=== PATIENT | male | born 1975 | race Caucasian/White ===

== ENCOUNTER 2016-07-28 11:03 | Observation (INO) | payer BC, OTHER ==
[2016-07-28] MEDS ORDERED: HYDROmorphone 1 MG/ML 1 ML SYRINGE IVP PRN ×2 (11:45→17:33)
[2016-07-28] MEDS ORDERED: HYDROmorphone 1 MG/ML 1 ML SYRINGE IVP STA (11:45)
[2016-07-28] MEDS ORDERED: ONDANSETRON 4 MG/2 ML VIAL IVP STA (11:47)
--- NOTE | 2016-07-28 13:06 | US ---
EXAMINATION TYPE: US abdomen limited DATE OF EXAM: 07/28/2016 12:53 PM COMPARISON: No previous CLINICAL HISTORY: Pain. Chest pain and nausea x 1 day EXAM MEASUREMENTS: Liver Length: 19.1 cm Gallbladder Wall: 0.2 cm CBD: 0.4 cm Right Kidney: 10.9 x 5.3 x 6.2 cm Technically difficult and limited study due to patient's body habitus Pancreas: obscured by overlying midline bowel gas Liver: enlarged at 19.1cm, heterogeneous, increased echogenicity, increased attenuation, scanned int ercostally, limited by rib shadowing Gallbladder: multiple echogenic shadowing mobile foci Evidence for sonographic Shultz's sign: no CBD: visualized portions wnl, limited by overlying bowel gas Right Kidney: visualized portions wnl, limited rib shadowing and overlying bowel gas IMPRESSION: There are a few gallstones near the gallbladder neck. Hepatomegaly and probable fatty infiltration of the liver.
[2016-07-28] MEDS ORDERED: RX INFO: IV CONTRAST WAS GIVEN 1 EACH MISC MISCELLANE PRN (15:41)
--- NOTE | 2016-07-28 17:03 | CT ---
EXAMINATION TYPE: CT angio chest DATE OF EXAM: 07/28/2016 4:55 PM COMPARISON: 04/30/2010 HISTORY: Patient complains of epigastric pain. CT DLP: 652 mGycm Automated exposure control for dose reduction was used. CONTRAST: CTA scan of the thorax is performed with IV Contrast, patient injected with 100 mL of Omnipaque 350, pulmonary embolism protocol. . FINDINGS: There are 3-D post processed images. There is mild subsegmental atelectasis at the lung bases. There is no pleural effusion. There is no e vidence of a pulmonary mass. There is no mediastinal adenopathy. There is no evidence of aortic aneurysm or dissection. I see no f illing defects in the pulmonary arteries. There are no hilar masses. There is no pericardial effusion . There is fatty infiltration of the liver.. IMPRESSION: NO EVIDENCE OF PULMONARY EMBOLISM. MILD SUBSEGMENTAL ATELECTASIS AT THE LUNG BASES. NO ADVERSE CHANGE COMPARED TO OLD EXAM.
--- NOTE | 2016-07-28 17:06 | CT ---
EXAMINATION TYPE: CT abdomen pelvis w con DATE OF EXAM: 07/28/2016 4:57 PM COMPARISON: NONE HISTORY: Patient complains of epigastric pain. CT DLP: 1803 mGycm Automated exposure control for dose reduction was used. TECHNIQUE: Helical acquisition of images was performed from the lung bases through the pelvis. CONTRAST: Performed without Oral Contrast and with IV Contrast, patient injected with 100 mL of Omnipaque 350. FINDINGS: There is mild subsegmental atelectasis at the lung bases. There is decreased density throughout the l iver related to fatty infiltration. Spleen appears normal. There is no pancreatic mass. Gallbladder a ppears normal. Bile ducts are not dilated. There is no adrenal mass. Kidneys show satisfactory contrast opacification. There is no hydronephrosi s. There is no retroperitoneal adenopathy. There is no ascites. There is a small umbilical hernia jean claude t contains omental fat. Bladder distends smoothly. There is no sign of a pelvic mass. There are clips apparently from appendectomy. I see no intestinal wall thickening. There are no dilated loops. I see no bony destructive process. There is 10% anterior wedging of T12 vertebra. IMPRESSION: OLD MILD COMPRESSION FRACTURE OF T12. FATTY INFILTRATION OF THE LIVER. UMBILICAL HERNIA. NO SIGN OF A CUTE ABDOMEN AND PELVIS.
[2016-07-28] MEDS ORDERED: NITROGLYCERIN SL TABS 0.4 MG TAB SUBLINGUAL PRN (17:33)
[2016-07-28] MEDS ORDERED: ACETAMINOPHEN TAB 325 MG TAB PO PRN (17:33)
--- NOTE | 2016-07-28 17:33 | ED ---
Chest Pain HPI - General Chief Complaint: Chest Pain Stated Complaint: Chest Pain Time Seen by Provider: 07/28/16 11:12 Source: patient, EMS Mode of arrival: EMS Limitations: no limitations - History of Present Illness Initial Comments: Says transferred from another hospital is a 40 years old had a chest pain for about a day now also complaining about the shortness of breath and chest pain gets worse with deep breaths E he does radiate to his neck complaining about epigastric area pain as well as right upper quadrant area pain he status post appendectomy sometime ago and the chest pain arrival is a 6. He had quite a bit of extensive workup done in his primary hospital that includes EKG troponin and CBC liver functions and C-reactive protein of those studies were normal V of system is otherwise unremarkable - Related Data Home Medications Medication Instructions Recorded Confirmed Ibuprofen [Motrin] 400 mg PO Q6HR PRN 03/30/16 07/28/16 Levothyroxine Sodium [Synthroid] 100 mcg PO HS 03/30/16 07/28/16 Lisinopril [Prinivil] 10 mg PO HS 03/30/16 07/28/16 Allergies Allergy/AdvReac Type Severity Reaction Status Date / Time morphine Allergy Itching Verified 07/28/16 12:19 Review of Systems ROS Statement: Those systems with pertinent positive or pertinent negative responses have been documented in the HPI. ROS Other: All systems not noted in ROS Statement are negative. EKG Findings - EKG Comments: EKG Findings:: EKG shows normal sinus bradycardia ventricular rate is 59 NM interval is 146 QRS duration is 90 QT/QTC 390/386 review of this EKG does not reveal any ST elevation or ST depression Past Medical History Past Medical History: Hypertension, Thyroid Disorder History of Any Multi-Drug Resistant Organisms: None Reported Past Surgical History: Appendectomy Additional Past Surgical History / Comment(s): Eye surgery when 5 y/o Past Anesthesia/Blood Transfusion Reactions: No Reported Reaction Past Psychological History: No Psychological Hx Reported Smoking Status: Current every day smoker Past Alcohol Use History: Occasional Past Drug Use History: None Reported - Past Family History Mother Family Medical History: Hypertension, Pulmonary Embolus Additional Family Medical History / Comment(s): Smoked for 48 years Father History Unknown: Yes Sister(s) Family Medical History: Hypertension General Exam - General Exam Comments Initial Comments: General: The patient is awake and alert, He is in a qzuq-ky-[id number] distress him a his chest pain is 7/10 Skin: Skin is warm and dry and no rashes or lesions are noted. Eye: Pupils are equal, round and reactive to light, extra-ocular movements are intact; there is normal conjunctiva bilaterally. Ears, nose, mouth and throat: There are moist mucous membranes and no oral lesions. Neck: The neck is supple, there is no tenderness or JVD. Cardiovascular: There is a regular rate and rhythm. No murmur, rub or gallop is appreciated Respiratory: To auscultation bilateral, no wheezing no rhonchi no distress respiratory delaroas noticed Gastrointestinal: Tender in epigastric area and tender over the right upper quadrant area, positive bowel sounds no guarding no rebounds. Back: There is no tenderness to palpation in the midline. There is no obvious deformity. Musculoskeletal: Normal ROM, no tenderness, There is no pedal edema. There is no calf tenderness or swelling. No cords were appreciated. Neurological: CN II-XII intact, Cranial nerves III through XII are intact. There are no obvious motor or sensory deficits. Coordination appears grossly intact. Speech is normal. Psychiatric: Cooperative, appropriate mood & affect, normal judgment. Limitations: no limitations Course Vital Signs 07/28/16 07/28/16 07/28/16 11:08 11:33 12:03 Temperature 97.7 F Pulse Rate 67 74 78 Respiratory 16 15 20 Rate Blood Pressure 161/103 154/98 159/92 O2 Sat by Pulse 98 98 98 Oximetry 07/28/16 07/28/16 15:59 16:14 Temperature 97.3 F L Pulse Rate 89 119 H Respiratory 16 24 Rate Blood Pressure 138/95 141/80 O2 Sat by Pulse 96 95 Oximetry Critical Care Time Total Critical Care Time: 50 Critical Care Time: General presentation was quite dramatic on and he had a quite a bit of extensive workup done as CT angina and now are hospital is negative CT abdomen is unremarkable but he still has chest pain considering that I would admit him under Dr. Parks service can heparinize him he would have adequate pain management and will consult cardiology Disposition Clinical Impression: Chest pain, Right upper quadrant pain Disposition: ADMITTED IP TO THIS HOSP Condition: Good
[2016-07-28] MEDS ORDERED: HEPARIN SODIUM,PORCINE/D5W PMX 25,000 UNIT in DEXTROSE/WATER 1 500ML.BAG IV SCH (17:45)
[2016-07-28] MEDS: HEPARIN SODIUM,PORCINE 5,000 UNIT/ML 1 ML VIAL IV ONE (18:15)
[2016-07-28 19:14] VITALS: RESP 16
[2016-07-28] MEDS ORDERED: LEVOTHYROXINE 100 MCG TAB PO SCH (21:00)
[2016-07-28] MEDS ORDERED: LISINOPRIL 10 MG TAB PO SCH (21:00)
[2016-07-28 21:13] VITALS: BMI 39.9
[2016-07-29 00:40] LABS: Creatine Kinase 171 U/L (55-170)
[2016-07-29 00:50] LABS: Creatine Kinase MB 1.6 ng/mL (0.0-2.4); Troponin I <0.012 ng/mL (0.000-0.034)
[2016-07-29] MEDS: HEPARIN SODIUM,PORCINE 5,000 UNIT/ML 1 ML VIAL IV ONE (02:26)
[2016-07-29] MEDS ORDERED: HEPARIN SODIUM,PORCINE 5,000 UNIT/ML 1 ML VIAL IV PRN (02:39)
[2016-07-29 06:25] LABS: Creatine Kinase 172 U/L (55-170)
[2016-07-29 06:26] LABS: Cholesterol 192 mg/dL (<200); HDL Cholesterol 54 mg/dL (40-60); Triglycerides 119 mg/dL (<150)
[2016-07-29 06:37] LABS: Creatine Kinase MB 1.5 ng/mL (0.0-2.4); Troponin I <0.012 ng/mL (0.000-0.034)
[2016-07-29 11:26] VITALS: BP 110/67; PULSE 90; TEMP 98.5
--- NOTE | 2016-07-29 15:18 | ECHOS ---
DATE OF SERVICE: 07/29/2016 AGE: 40Y SEX: M HT: 69" WT: 270 lbs. Protocol Alex: X Others: Stress Echo Stage: 3 Dur. of Exercise: 7:00 *Heart Rate Blood Pressure *Rest: 101 Rest: 118/77 * *Max. Achieved: 163 Maximum BP: 183/60 85% PMHR: 154 100% PMHR: 181 *METS: 8.1 INDICATIONS: Chest pain. MEDICATIONS: Lisinopril, Synthroid, Motrin. Baseline rhythm is sinus mechanism, rate of 101, normal axis and intervals, normal electrocardiogram. Baseline blood pressure 118/77 mmHg. Patient exercised on Alex protocol for 7 minutes reaching peak rate of 163 beats per minute, which is equal to 90% maximum predicted heart rate; peak blood pressure 183/60 mmHg. Test was terminated due to fatigue. There was no chest pain. Electrocardiograph monitoring revealed no evidence of diagnostic ischemic ST deviation. FINDINGS: Baseline echocardiogram revealed normal wall motion. At peak exercise there was normal wall motion augmentation with no hypokinesis or dyskinesis. CONCLUSION: 1. Average exercise tolerance with normal electrocardiograph response to exercise. 2. Normal stress echocardiogram with no evidence of stress-induced ischemia.
--- NOTE | 2016-07-29 15:51 | CONS ---
DATE OF CONSULTATION: Mr. Rodriguez is a 40-year-old gentleman with multiple admissions in the past with history of ( ) history of smoking. He came in with pain that started in the interscapular area radiating to the front, on a scale of 1 to 10, 4 to 5 over 10. Patient's chest pain gets worse with deep inspiration. Patient does not have symptoms suggestive of pericarditis but pleuritic type of pain. Patient had a CT of the chest that was done to rule out, ruled out pulmonary embolism. Patient's EKGs do not show any acute ischemic changes. Patient appears to have atypical symptoms. Patient also is known to have hyperlipidemia with LDL cholesterol of 114. Probably patient would benefit from complete cessation of smoking and starting on the lipid-lowering agents. Patient is known hypertensive and past history of pericarditis 3 years ago. Current medications prior to admission include: 1. Motrin 400 mg. 2. Levothyroxine 100 mcg p.o. daily. 3. Lisinopril 10 mg p.o. daily. ALLERGIES: MORPHINE. REVIEW OF SYSTEMS: Essentially unremarkable other than what is stated in the presenting illness. Patient is a smoker; smokes about 1 pack of cigarettes per day. Patient is known to have hypertension. Patient's physical examination revealed a moderately obese gentleman, not in any acute distress, oriented x3 with a pulse rate of 82 beats per minute and regular, blood pressure of 119/77, respirations of 20. Head normocephalic. HEENT unremarkable. Neck is supple. No thyroid enlargement. No bruit noted. Good carotid upstroke bilaterally. Chest is symmetrical. CARDIAC EXAMINATION: S1 and S2. Lungs are clinically clear. No pleural rubs are noted. Lungs are clinically clear other than scattered rhonchi. ABDOMEN: Soft. No organomegaly. Active bowel sounds. EXTREMITIES: Peripheral pulses. No pedal edema. PLASTIC SEWER examination is grossly within normal limits. Patient also noted to have gallstones on the CT. CT of the chest was negative for pulmonary embolism. ASSESSMENT: 1. Atypical chest pains. 2. Long-standing history of smoking. 3. Hypertension. 4. Hyperlipidemia. 5. Moderate exogenous obesity. RECOMMENDATIONS: Patient advised complete cessation of smoking. Will proceed with a stress echocardiogram. If this study is normal, patient should be able to go home. If the study is abnormal, patient will have a cardiac catheterization. Patient will follow with his primary care physician.
--- NOTE | 2016-07-29 20:35 | HP ---
DATE OF ADMISSION: CHIEF COMPLAINT: Chest pain. HISTORY OF PRESENT ILLNESS: Mr. Rodriguez is 40-year-old male with a known history of hypertension, hypothyroidism, and a history of pericarditis in 2009. He came to the hospital with complaints of chest pain, mainly mid sternal, that started yesterday morning. Denied any radiation. Chest pain was associated with dry heaves and minimal sweating. Patient also felt short of breath along with the chest pain. Otherwise, patient says that the chest pain worsens with deep breathing on admission. Chest pain is mainly in the midsternal and epigastric region. Patient initially presented to [facility]. From there patient was transferred to [facility] for cardiac evaluation. Otherwise, patient had a normal workup done. EKG, troponin x3 as well as liver function tests and C-reactive protein studies were all within normal limits at [facility]. Patient had a CT angiogram of the chest which showed no pulmonary embolism. CT abdomen and pelvis showed old compression fracture at T12 and fatty infiltration of the liver; no signs of acute abdomen or pelvis. REVIEW OF SYSTEMS: CONSTITUTIONAL: No fever. No chills. No weakness. RESPIRATORY: No cough or sputum production. CARDIOVASCULAR: No chest pain. Short of breath. No leg swelling. ABDOMEN: No nausea, vomiting, abdominal pain. GENITOURINARY: Negative. ENDOCRINE: Negative. PSYCHIATRIC: Negative. SKIN: Negative. MUSCULOSKELETAL: Negative. All other fourteen-point review of systems negative except as above. Past medical history includes: 1. Hypertension. 2. Hypothyroidism. PAST SURGICAL HISTORY: 1. Appendectomy. 2. Eye surgery as a 5-year-old. No psychosocial history. SOCIAL HISTORY: Currently an everyday smoker. Smokes about half a pack per day. Occasional alcohol use. Denied any drugs or IVDU. FAMILY HISTORY: Mother has hypertension, pulmonary embolism; smoker for 48 years. Sister has hypertension. ALLERGIES: MORPHINE. Home medications include: 1. Motrin. 2. Synthroid. 3. Lisinopril. PHYSICAL EXAMINATION: Tjowkq-eltu-tuqo-old male lying in the bed comfortably. Alert, awake, oriented x3. No apparent distress. VITALS: Blood pressure is 138/95. Pulse is 89, respiration 16, temperature afebrile, pulse ox 96% on 2 L nasal cannula. HEENT: Atraumatic, normocephalic. NECK: Supple. No JVD. CVS EXAM: S1, S2 heard. No murmurs. No gallop. No rub. LUNGS: Bilateral air entry is present. No wheezing. No crackles. Non-labored breathing. ABDOMEN: Soft, nontender. Bowel sounds present. PLANNER SCHEDULER: Awake, alert, oriented x3. No focal deficit. EXTREMITIES: No edema. Pulses palpable bilaterally. No clubbing or cyanosis. PSYCHIATRIC: Cooperative. LABORATORY DATA: CBC, BMP within normal limits at [facility]. Troponin x3 negative. LDL is 114. CT abdomen and pelvis showed fatty infiltration of the liver and T12 compression fracture. CT angiogram showed no evidence of pulmonary embolism. IMPRESSION: 1. Chest pain, atypical. Rule out acute coronary syndrome. Continue with telemetry monitoring and serial EKGs and troponins. Cardiology recommended stress echo. I will continue the telemetry monitoring for now. 2. CT angiogram is negative for any pulmonary embolism. 3. Fatty infiltration of the liver. 4. Old compression fracture of T12. 5. Hypertension. 6. Hyperlipidemia with LDL of 114. 7. History of pericarditis in 2009. 8. Gallstones. EKG shows sinus bradycardia. Ultrasound of abdomen shows a few gallstones near the gallbladder neck. DISCUSSION AND PLAN: Patient will be continued on telemetry monitoring. Await stress echocardiogram and CT abdomen and pelvis. CT angiogram of the chest showed no acute abnormality. Will continue the current management. Further recommendations based on the clinical course.
[2016-07-30] MEDS ORDERED: ATORVASTATIN 20 MG TAB PO SCH (09:00)
--- NOTE | 2016-07-30 12:09 | DS ---
DATE OF ADMISSION: 07/28/2016 DATE OF DISCHARGE: 07/29/2016 DISCHARGE DIAGNOSES: 1. Atypical chest pain, rule out acute coronary artery syndrome, most likely gastroesophageal reflux disease related. 2. History of pericarditis in 2009. 3. Hypertension. 4. Hyperlipidemia with LDL level of 114. 5. Hypothyroidism. 6. Gallstones, a few. HOSPITAL COURSE: Mr. Rodriguez is a 40-year-old with a known history of hypertension, came to the hospital with complaints of chest pain. He has dry heaves and short of breath which is midsternal and patient was telemonitored and serial EKGs and troponins were done, which are negative. Patient was initially seen at [facility] and transferred to [facility] for cardiac evaluation; otherwise, patient is clinically much improved now. No clubbing or chest pain today. Patient seen by Cardiology and recommend a stress echocardiogram which showed no inducible ischemia with exercise and patient is currently chest-pain free. Patient will be discharged home in stable condition to follow with the primary care physician in 1 to 3 days. Patient had a work-up, including a CT abdomen that showed a fatty infiltration of the liver as well as gallstones. The patient otherwise advised to follow with the primary care physician for further management. DISCHARGE PHYSICAL EXAMINATION: A 40-year-old male lying in bed comfortably, alert and oriented x3, appears to be in no apparent distress. VITALS: Blood pressure is 114/89, pulse is 100, respirations 16, temperature afebrile, pulse ox 93% on room air. Laboratory data reviewed. Discharge physical examination done. Discharge medications include: 1. Levothyroxine 100 mcg p.o. at bedtime. 2. Lisinopril 10 mg p.o. at bedtime. 3. Atorvastatin 20 mg p.o. daily. Patient will be discharged home in stable condition. Activity as tolerated. Heart-healthy diet and follow with Cardiology in 1 week.
== END 2016-07-29 18:26 | disposition home or self-care (01) ==
LOC: EC 11:03 → 3OBS 17:33
PROVIDERS: ADMIT Hospitalist; ATTEND Hospitalist
DX: R07.89 Other chest pain (principal); I10 Essential (primary) hypertension; E78.5 Hyperlipidemia, unspecified; E03.9 Hypothyroidism, unspecified; K80.20 Calculus of gallbladder without cholecystitis without obstruction; R06.02 Shortness of breath; R10.13 Epigastric pain; R07.1 Chest pain on breathing; R10.11 Right upper quadrant pain; Z79.899 Other long term (current) drug therapy; Z88.5 Allergy status to narcotic agent; F17.200 Nicotine dependence, unspecified, uncomplicated; E66.09 Other obesity due to excess calories; K76.0 Fatty (change of) liver, not elsewhere classified; R00.1 Bradycardia, unspecified; Z90.49 Acquired absence of other specified parts of digestive tract; Z82.49 Family history of ischemic heart disease and other diseases of the circulatory system
CPT/HCPCS: 96376 ×3; 96374 ×2; 96375 ×3; 99285 ×2; 93005; 93350; 93017; 80061; 82550 ×2; 82553 ×2; 84484 ×2; 85730 ×2; 76705; 71275; 74177; G0378 ×2; J1644 ×3; Q9967; J2405; Q9957; J1170; 96366

== ENCOUNTER 2017-10-11 20:18 | Observation (INO) | payer BC, OTHER ==
[2017-10-11 22:33] VITALS: BMI 38.9
[2017-10-11] MEDS ORDERED: LEVOTHYROXINE 100 MCG TAB PO SCH (23:00)
[2017-10-11] MEDS ORDERED: ACETAMINOPHEN TAB 325 MG TAB PO PRN (23:00)
[2017-10-11] MEDS ORDERED: HEPARIN SODIUM,PORCINE 5,000 UNIT/ML 1 ML VIAL IV PRN (23:00)
[2017-10-11] MEDS ORDERED: LISINOPRIL 10 MG TAB PO SCH (23:00)
[2017-10-11] MEDS ORDERED: NITROGLYCERIN SL TABS 0.4 MG TAB SUBLINGUAL PRN (23:00)
[2017-10-11] MEDS ORDERED: HEPARIN SODIUM,PORCINE 5,000 UNIT/ML 1 ML VIAL IV ONE (23:00)
[2017-10-11] MEDS ORDERED: FAMOTIDINE 20 MG TAB PO SCH ×2 (23:00→23:02)
[2017-10-11] MEDS ORDERED: HEPARIN SODIUM,PORCINE/D5W PMX 25,000 UNIT in DEXTROSE/WATER 1 500ML.BAG IV SCH (23:30)
[2017-10-11] MEDS: SODIUM CHLORIDE 0.9% 1,000 ML IV SCH (23:34)
[2017-10-11 23:53] LABS: Creatine Kinase 387 U/L (55-170)
[2017-10-12 00:06] LABS: Troponin I <0.012 ng/mL (0.000-0.034)
[2017-10-12 00:20] LABS: Creatine Kinase MB 2.9 ng/mL (0.0-2.4)
[2017-10-12 06:50] LABS: Basophils # (A) 0.1 k/uL (0-0.2); Basophils % (A) 1 %; Eosinophils # (A) 0.4 k/uL (0-0.7); Eosinophils % (A) 5 %; HCT 40.8 % (39.0-53.0); HGB 13.4 gm/dL (13.0-17.5); Lymphocytes # (A) 2.9 k/uL (1.0-4.8); Lymphocytes % (A) 35 %; MCH 29.6 pg (25.0-35.0); MCHC 32.8 g/dL (31.0-37.0); MCV 90.1 fL (80.0-100.0); Mean Platelet Volume 7.7; Monocytes # (A) 0.5 k/uL (0-1.0); Monocytes % (A) 6 %; Neutrophils # (A) 4.3 k/uL (1.3-7.7); Neutrophils % (A) 51 %; Platelet Count 200 k/uL (150-450); RBC 4.53 m/uL (4.30-5.90); RDW 13.3 % (11.5-15.5); WBC 8.4 k/uL (3.8-10.6)
[2017-10-12 07:03] LABS: Anion Gap 11 mmol/L; Blood Urea Nitrogen 13 mg/dL (9-20); Carbon Dioxide 23 mmol/L (22-30); Chloride 108 mmol/L (98-107); Cholesterol 185 mg/dL (<200); Glucose 91 mg/dL (74-99); HDL Cholesterol 41 mg/dL (40-60); LDL Cholesterol,Calculated 108 mg/dL (0-99); Magnesium 1.9 mg/dL (1.6-2.3); Potassium 4.3 mmol/L (3.5-5.1); Sodium 142 mmol/L (137-145); Triglycerides 182 mg/dL (<150)
[2017-10-12 07:11] LABS: Creatine Kinase 316 U/L (55-170)
[2017-10-12 07:25] LABS: Creatine Kinase MB 2.2 ng/mL (0.0-2.4); Troponin I <0.012 ng/mL (0.000-0.034)
--- NOTE | 2017-10-12 09:50 | CONS ---
CONSULTATION CHIEF COMPLAINT: Chest pain. HISTORY OF PRESENT ILLNESS: Cole is a 42-year-old gentleman with history of hypertension who presents to the hospital complaining of chest pain. He states that this started while he was sitting on his porch. It felt like a pressure. There was no radiation to neck, arm or back. Was moderate intensity. There was no diaphoresis, but he had mild shortness of breath. This resolved spontaneously and went to the emergency room at [facility] and from there he had been transferred to [facility]. He received a sublingual nitroglycerin from the EMS and is not quite sure if it made a difference to his symptoms. He has had 2 sets of troponins that are both within normal limits. EKG shows normal sinus rhythm without significant ST-T wave changes. The patient had similar symptoms a little over a year ago and at that time had a stress echo that was negative. The patient's coronary risk factors are in the form of smoking and hypertension. There is no history of diabetes, a strong family history of premature coronary artery disease. ALLERGIES: Allergic to MORPHINE. MEDICATIONS: At home included Zantac, Prinivil 10 daily and Synthroid. FAMILY HISTORY: Negative for premature coronary artery disease. SOCIAL HISTORY: Significant for smoking. There is no history of EtOH abuse or drug abuse. REVIEW OF SYSTEMS: HEENT is unremarkable. Cardiac as described above. Respiratory negative. GI negative. negative. Allergy/Immunology: Negative. Musculoskeletal: Negative. Endocrine: Negative. DERM: Negative. CONSTITUTIONAL: Negative. ONCOLOGICAL: Negative. HEMATOLOGICAL: Negative. Rest of the system review is not relevant. EXAM: Comfortable at rest. Vital signs are stable. There is no jugular venous distention. Carotid upstroke is normal. There is no bruit. Chest exam reveals good air entry bilaterally. Heart exam reveals first and second heart sounds. No gallop. No murmur. No rub. Abdomen is soft, nontender. Exam of extremities did not reveal any edema. Peripheral pulses are felt. EKGs shows normal sinus rhythm and is within normal limits. Cardiac enzymes have been negative. ASSESSMENT: 1. Precordial chest pain. 2. Hypertension. 3. Smoking. PLAN: I am going to stop the IV heparin and ambulate him. I gave patient 1 of 2 options, either stay here and get a stress test done in the morning or go home and schedule an outpatient stress test. The patient wishes to go home and will schedule an outpatient stress test on him. MMODL / IJN: [id number] /
[2017-10-12 11:08] VITALS: BP 112/69; PULSE 70; RESP 16; TEMP 97.1
[2017-10-12] MEDS: SODIUM CHLORIDE 0.9% 1,000 ML IV SCH (11:09)
[2017-10-12 12:18] LABS: Creatine Kinase 302 U/L (55-170)
[2017-10-12 12:30] LABS: Creatine Kinase MB 1.8 ng/mL (0.0-2.4); Troponin I <0.012 ng/mL (0.000-0.034)
--- NOTE | 2017-10-12 23:47 | P.HPIM ---
History of Present Illness H&P Date: 10/12/17 Chief Complaint: Chest pain Mr. Rodriguez is a 42-year-old male with a past medical history of hypertension transferred from [facility] for chest pain. Patient states that he was sitting on his porch when he started to feel a pressure-like sensation in the substernal region with no radiation was moderate intensity and so he went to the ER. The patient received sublingual nitroglycerin via EMS and he had 2 sets of troponins done in [facility]. EKGs were showing sinus rhythm without any ST-T wave changes. Patient mentions of having a stress test done one year back when he had the same type of symptoms and that it was negative. Patient's risk factors for coronary artery disease are smoking hypertension and obesity. He denies having any strong family history of premature coronary artery disease or diabetes. Patient denies having any fevers chills rigors. Normal bowel pain nausea vomiting or diarrhea. No hematuria or dysuria. Patient denies having any headaches blurring of vision or loss of consciousness. Review of Systems REVIEW OF SYSTEMS: PSYCH: Normal psychiatric exam NEURO:No c/o weakness of the extremties, No facial droop, No speech abnormalities. VASCULAR: Peripheral nervous system within the normal limits no edema HEMATOLOGIC: No history of easy bleeding and bruising . No recent infections . RESPIRATORY: No cough, No SOB, No chest discomfort. IMMUNE: No infections INTEGUMENT: no rashes OPHTHALMOLOGIC: No blurry vision and no eye discharge : No dysuria or hematuria CARDIAC: as per HPI MUSCULOSKELETAL : No Aches or pains in the joints or muscles. GI: No abdominal pain, Nausea or vomiting. No constipation or diarrhea. Past Medical History Past Medical History: GERD/Reflux, Hypertension, Thyroid Disorder History of Any Multi-Drug Resistant Organisms: None Reported Past Surgical History: Appendectomy Additional Past Surgical History / Comment(s): Eye surgery when 5 y/o, lymph node in neck removed Past Anesthesia/Blood Transfusion Reactions: No Reported Reaction Past Psychological History: No Psychological Hx Reported Smoking Status: Current every day smoker Past Alcohol Use History: Occasional Past Drug Use History: None Reported - Past Family History Mother Family Medical History: Hypertension, Pulmonary Embolus Additional Family Medical History / Comment(s): Smoked for 48 years Father History Unknown: Yes Sister(s) Family Medical History: Hypertension Medications and Allergies Home Medications Medication Instructions Recorded Confirmed Type Levothyroxine Sodium [Synthroid] 100 mcg PO HS 03/30/16 10/11/17 History Lisinopril [Prinivil] 10 mg PO HS 03/30/16 10/11/17 History Ranitidine HCl 150 mg PO HS 10/11/17 10/11/17 History Allergies Allergy/AdvReac Type Severity Reaction Status Date / Time morphine Allergy Itching Verified 10/12/17 14:04 Physical Exam Vitals: Vital Signs Temp Pulse Resp BP Pulse Ox 10/12/17 11:07 97.1 F L 70 16 112/69 97 10/12/17 08:00 96.9 F L 73 18 101/62 98 10/12/17 03:20 97.2 F L 70 18 107/71 97 10/11/17 22:30 97.0 F L 78 16 123/73 97 10/11/17 22:27 97.0 F L 78 16 123/73 97 Intake and Output 10/12/17 10/12/17 10/12/17 06:59 14:59 22:59 Intake Total 148.333 Balance 148.333 Intake: Intake, IV Titration 148.333 Amount Heparin Sodium,Porcine/ 148.333 D5w Pmx 25,000 unit In Dextrose/Water 1 500ml. bag @ 20 mls/hr IV .Q24H [facility] Rx#:[id number] Other: # Voids 1 2 Weight 119.5 kg GENERAL EXAM GEN. APPEARANCE: alert, in no apparent distress,obese HEAD EXAM: atraumatic, normocephalic, normal inspection EYE EXAM: normal appearance, PERRL, EOMI. Absent: scleral icterus, conjunctival injection, periorbital swelling ENT EXAM: normal exam, mucous membranes moist NECK EXAM: normal inspection. Absent: tenderness, meningismus, full ROM, lymphadenopathy RESPIRATORY EXAM: normal lung sounds bilaterally. Absent: respiratory distress , wheezes, rales, rhonchi, stridor CARDIOVASCULAR EXAM: regular rate, normal rhythm, normal heart sounds. Absent : systolic murmur, diastolic murmur, rubs, gallop, clicks GI/ABDOMINAL EXAM: soft, normal bowel sounds. Absent: distended, tenderness, guarding, rebound, rigid EXTREMITIES EXAM: normal inspection, full ROM, normal capillary refill. Absent : tenderness, pedal edema, joint swelling, calf tenderness NEUROLOGICAL EXAM: alert, oriented X3,no focal deficit PSYCHIATRIC EXAM: normal affect, normal mood SKIN EXAM: warm, dry, intact, normal color. Absent: rash Results CBC & Chem 7: 10/12/17 05:27 10/12/17 05:27 Labs: Abnormal Lab Results - Last 24 Hours (Table) 10/11/17 10/12/17 10/12/17 Range/Units 23:21 05:27 05:27 APTT (22.0-30.0) sec Chloride 108 H (98-107) mmol/L Total Creatine Kinase 387 H 316 H (55-170) U/L CK-MB (CK-2) 2.9 H* (0.0-2.4) ng/mL Triglycerides 182 H (<150) mg/dL LDL Cholesterol, Calc 108 H (0-99) mg/dL 10/12/17 10/12/17 Range/Units 05:27 11:35 APTT 31.8 H (22.0-30.0) sec Chloride (98-107) mmol/L Total Creatine Kinase 302 H (55-170) U/L CK-MB (CK-2) (0.0-2.4) ng/mL Triglycerides (<150) mg/dL LDL Cholesterol, Calc (0-99) mg/dL Thrombosis Risk Factor Assmnt - Choose All That Apply Each Factor Represents 1 point: Age 41-60 years Thrombosis Risk Factor Assessment Total Risk Factor Score: 1 Thrombosis Risk Factor Assessment Level: Low Risk Assessment and Plan Assessment: ASSESSMENT Atypical chest pain HTN Nicotine dependence Obesity BMI-38.9 GERD Plan: Patient was initially started on IV heparin drip. Serial troponins and EKG - WNL. He was evaluated by cardiology Dr. Nix. He was recommended to get a stress test and patient wishes to go home and that he will schedule the test as outpatient. So patient is being discharged home to have a follow-up with cardiology, numbers have been provided to the patient. No changes in his medications have been made and the treatment plan was discussed in detail with the patient . He is being discharged home in a stable condition with appropriate follow-up.
--- NOTE | 2017-10-12 23:49 | P.DS ---
Providers Date of admission: 10/11/17 22:13 Attending physician: Courtney Merino Consults: 10/11/17 23:06 Consult Physician Routine Consulting Provider: Hasmukh Covarrubias Consult Reason/Comments: chest pain Do you want consulting provider notified?: Yes, Notify in am Primary care physician: Stated None Hospital Course: Mr. Rodriguez is a 42-year-old male with a past medical history of hypertension transferred from [facility] for chest pain. Patient states that he was sitting on his porch when he started to feel a pressure-like sensation in the substernal region with no radiation was moderate intensity and so he went to the ER. The patient received sublingual nitroglycerin via EMS and he had 2 sets of troponins done in [facility]. EKGs were showing sinus rhythm without any ST-T wave changes. Patient mentions of having a stress test done one year back when he had the same type of symptoms and that it was negative. Patient's risk factors for coronary artery disease are smoking hypertension and obesity. He denies having any strong family history of premature coronary artery disease or diabetes. Patient denies having any fevers chills rigors. Normal bowel pain nausea vomiting or diarrhea. No hematuria or dysuria. Patient denies having any headaches blurring of vision or loss of consciousness. Hopsital course - Patient was initially started on IV heparin drip. Serial troponins and EKG - WNL. He was evaluated by cardiology Dr. Nix. He was recommended to get a stress test and patient wishes to go home and that he will schedule the test as outpatient. So patient is being discharged home to have a follow-up with cardiology, numbers have been provided to the patient. No changes in his medications have been made and the treatment plan was discussed in detail with the patient . He is being discharged home in a stable condition with appropriate follow-up. DISCHARGE DIAGNOSIS. Atypical chest pain HTN Nicotine dependence Obesity BMI-38.9 GERD Plan - Discharge Summary New Discharge Prescriptions: Continue Lisinopril [Prinivil] 10 mg PO HS Levothyroxine Sodium [Synthroid] 100 mcg PO HS Ranitidine HCl 150 mg PO HS Discharge Medication List Levothyroxine Sodium [Synthroid] 100 mcg PO HS 03/30/16 [History] Lisinopril [Prinivil] 10 mg PO HS 11/26/16 [History] Ranitidine HCl 150 mg PO HS 10/11/17 [History] Patient Instructions/Handouts: Chest Pain (DC), Cardiac Stress Test (DC) Activity/Diet/Wound Care/Special Instructions: Call Friday and schedule stress test Discharge Disposition: HOME SELF-CARE
== END 2017-10-12 16:05 | disposition home or self-care (01) ==
LOC: 6SEL 22:13
PROVIDERS: ADMIT Internal Medicine; ATTEND Internal Medicine
DX: R07.89 Other chest pain (principal); I10 Essential (primary) hypertension; K21.9 Gastro-esophageal reflux disease without esophagitis; E66.9 Obesity, unspecified; Z68.38 Body mass index [BMI] 38.0-38.9, adult; F17.200 Nicotine dependence, unspecified, uncomplicated; E07.9 Disorder of thyroid, unspecified; Z79.890 Hormone replacement therapy; Z79.899 Other long term (current) drug therapy; Z88.5 Allergy status to narcotic agent
CPT/HCPCS: 96374; 80061; 80048; 82550 ×2; 82553 ×2; 83735; 84484 ×2; 85025; 85730; G0378 ×2; G0379; J1644 ×3